=== PATIENT | female | born 1960 | race Caucasian/White ===

== ENCOUNTER → 2024-02-15 | Outpatient (CLI) | payer MEDICARE | END | disposition home or self-care (01) | LOC: MRI 13:43 | PROVIDERS: ATTEND Podiatrist Foot & Ankle Surgery | DX: M76.61 Achilles tendinitis, right leg (principal); M25.471 Effusion, right ankle; G57.61 Lesion of plantar nerve, right lower limb; M92.60 Juvenile osteochondrosis of tarsus, unspecified ankle; R60.0 Localized edema | CPT/HCPCS: 73721 ==